=== PATIENT | female | born 1990 | race Caucasian/White ===

== ENCOUNTER 2021-09-09 15:13 | Emergency (ER) | payer MEDICAID ==
[~2021-09-09] VITALS: Ht 160 cm; Wt 60.9 kg
[2021-09-09 15:17] VITALS: BP 106/77
[2021-09-09] MEDS ORDERED: ONDANSETRON 4MG ODT PO ONE (16:45)
[2021-09-09] MEDS ORDERED: IBUPROFEN 400MG TABLET PO ONE ×2 (16:45→19:15)
[2021-09-09 17:03] LABS: CLARITY URINE CLEAR (CLEAR); COLOR URINE YELLOW (YELLOW); KETONES URINE NEGATIVE (NEGATIVE); LEUKOCYTE ESTERASE URINE NEGATIVE (NEGATIVE); NITRITE URINE NEGATIVE (NEGATIVE); OCCULT BLOOD URINE NEGATIVE (NEGATIVE); PH URINE 7.5 (4.5-8.0); PROTEIN URINE NEGATIVE (NEGATIVE); UROBILINOGEN URINE 0.2 E.U./dL (0.2-1.0)
[2021-09-09 19:32] LABS: BASOPHILS % 0.8 % (0.0-2.0); EOSINOPHILS % 1.2 % (0.0-5.0); HEMATOCRIT. 39.2 % (36.0-48.0); HEMOGLOBIN. 12.7 g/dL (12.0-16.0); LYMPHOCYTES % 27.6 % (20.0-50.0); MEAN CORPUSCULAR HEMOGLOBIN 24.6 pg (28.0-32.0); MEAN CORPUSCULAR VOLUME 75.8 fL (81.0-99.0); MEAN PLATELET VOLUME 9.3 fl (7.4-10.4); NEUTROPHILS % 64.4 % (40.0-76.0); PLATELET 301 x1000/uL (130-400); RED BLOOD CELL COUNT 5.17 mill/uL (4.2-5.4); RED CELL DISTRIBUTION WIDTH 14.5 % (11.6-14.6)
[2021-09-09 19:34] LABS: CHLORIDE 103 mEq/L (98-107)
[2021-09-09] MEDS ORDERED: IBUP-2028 MT (21:06)
== END 2021-09-09 16:43 | disposition home or self-care (01) ==
LOC: ER 15:13
DX: N83.201 Unspecified ovarian cyst, right side (principal)
CPT/HCPCS: 36415; 76700; 76830; 76856; 80053; 81003; 81025; 83690; 85025; 99284; Q0162

== ENCOUNTER 2021-10-23 00:09 | Emergency (ER) | payer MEDICAID, OTHER ==
[~2021-10-23] VITALS: Ht 157.5 cm; Wt 59.0 kg
[~2021-10-23 00:09] MED LIST: IBUP-2028 MT
[2021-10-23] MEDS ORDERED: ACETAMINOPHEN 325MG TABLET PO PRN (03:45)
[2021-10-23 03:51] LABS: BASOPHILS % 0.2 % (0.0-2.0); EOSINOPHILS % 0.6 % (0.0-5.0); HEMATOCRIT. 36.8 % (36.0-48.0); LYMPHOCYTES % 15.7 % (20.0-50.0); MEAN CORPUSCULAR HEMOGLOBIN 24.6 pg (28.0-32.0); MEAN CORPUSCULAR VOLUME 75.4 fL (81.0-99.0); MEAN PLATELET VOLUME 9.2 fl (7.4-10.4); MONOCYTES % 6.4 % (2.0-8.0); NEUTROPHILS % 77.1 % (40.0-76.0); PLATELET 230 x1000/uL (130-400); RED BLOOD CELL COUNT 4.88 mill/uL (4.2-5.4); RED CELL DISTRIBUTION WIDTH 14.7 % (11.6-14.6)
[2021-10-23 04:01] LABS: CHLORIDE 106 mEq/L (98-107)
[2021-10-23 04:10] LABS: B-HCG QUANTITATIVE < 1 mIU/mL (<3)
[2021-10-23 05:16] LABS: CLARITY URINE CLEAR (CLEAR); COLOR URINE YELLOW (YELLOW); KETONES URINE TRACE (NEGATIVE); LEUKOCYTE ESTERASE URINE TRACE (NEGATIVE); NITRITE URINE NEGATIVE (NEGATIVE); OCCULT BLOOD URINE 3+ (NEGATIVE); PH URINE 5.5 (4.5-8.0); PROTEIN URINE NEGATIVE (NEGATIVE); SPECIFIC GRAVITY URINE 1.026 (1.005-1.030); UROBILINOGEN URINE 0.2 E.U./dL (0.2-1.0)
[2021-10-23 05:55] VITALS: BP 103/59
== END 2021-10-23 06:39 | disposition home or self-care (01) ==
LOC: ER 00:09
DX: N83.201 Unspecified ovarian cyst, right side (principal)
CPT/HCPCS: 36415; 76830; 76856; 80053; 81003; 81025; 84702; 85025; 99284

== ENCOUNTER 2022-01-06 17:30 | Emergency (ER) | payer MEDICAID, OTHER ==
[~2022-01-06] VITALS: Ht 157.5 cm; Wt 58.0 kg
[2022-01-06 23:34] LABS: CHLORIDE 100 mEq/L (98-107)
[2022-01-06 23:37] LABS: PROTHROMBIN TIME 11.2 sec (9.6-11.0)
[2022-01-06 23:44] LABS: B-HCG QUANTITATIVE < 1 mIU/mL (<3); BASOPHILS % 1.3 % (0.0-2.0); HEMATOCRIT. 39.3 % (36.0-48.0); HEMOGLOBIN. 13.1 g/dL (12.0-16.0); LYMPHOCYTES % 37.4 % (20.0-50.0); MEAN CORPUSCULAR HEMOGLOBIN 25.4 pg (28.0-32.0); MEAN CORPUSCULAR VOLUME 76.2 fL (81.0-99.0); MEAN PLATELET VOLUME 9.5 fl (7.4-10.4); MONOCYTES % 7.9 % (2.0-8.0); NEUTROPHILS % 51.4 % (40.0-76.0); PLATELET 306 x1000/uL (130-400); RED BLOOD CELL COUNT 5.16 mill/uL (4.2-5.4); RED CELL DISTRIBUTION WIDTH 13.6 % (11.6-14.6)
[2022-01-07 00:04] LABS: HCG SCREEN NEGATIVE
[2022-01-07 00:48] LABS: CLARITY URINE CLEAR (CLEAR); COLOR URINE YELLOW (YELLOW)
[2022-01-07 00:49] LABS: KETONES URINE NEGATIVE (NEGATIVE); OCCULT BLOOD URINE TRACE (NEGATIVE); PROTEIN URINE NEGATIVE (NEGATIVE)
[2022-01-07 00:50] LABS: LEUKOCYTE ESTERASE URINE NEGATIVE (NEGATIVE); NITRITE URINE NEGATIVE (NEGATIVE); UROBILINOGEN URINE 0.2 E.U./dL (0.2-1.0)
[2022-01-07] MEDS: IBUPROFEN 800MG TABLET PO NR ×2 (01:00→01:03)
[2022-01-07] MEDS ORDERED: IBUP-2030 MT (01:20)
[2022-01-07 01:30] VITALS: BP 112/68
== END 2022-01-07 01:30 | disposition home or self-care (01) ==
LOC: ER 17:30
DX: R10.2 Pelvic and perineal pain (principal); N83.202 Unspecified ovarian cyst, left side
CPT/HCPCS: 36415; 76830; 76856; 80048; 81003; 84702; 84703; 85025; 86850; 86900; 99284